=== PATIENT | female | born 1980 | race Caucasian/White ===

== ENCOUNTER 2024-01-20 10:04 | Inpatient (IN) | payer OTHER, SELFPAY ==
[2024-01-20] VITALS (8 sets, daily range): BP systolic 107–116; BP diastolic 76–88; PULSE 0–105; RESP 17–19; TEMP 36.4–36.9; O2SAT 95–98; BMI 26.2; BMI 31.0
--- NOTE | 2024-01-20 10:38 | ED_ITS ---
HPI - Nausea/Vomiting/Diarrhea 2 General: Chief complaint: Nausea/Vomiting/Diarrhea Stated complaint: D/N Time Seen by Provider: 01/20/24 10:26 Source: patient Mode of arrival: ambulatory Limitations: no limitations History of Present Illness: 43-year-old female states that she has b een having nausea vomiting diarrhea for the last 10 days. States her stools have been watery in nature she denies any fever denies any pain states she feels dehydrated from the diarrhea. She denies any recent travel denies any recent antibiotic use. Denies any worsening improving factors Associated nausea: Yes Associated symtoms: Reports nausea; Denies chest pain or headache(s) Related Data Home Medications Medication Instructions Recorded Confirmed medroxyprogesterone 150 mg/mL 1 mg IM Q84D 01/20/24 01/20/24 intramuscular suspension Allergies Allergy/AdvReac Type Severity Reaction Status Date / Time azithromycin Allergy ALGY-Rash Verified 01/20/24 10:29 Review of Systems 2 Const: Denies: fever(s), chills, body aches or change in appetite ENMT: Denies: throat pain or dental pain Card: Denies: chest pain Resp: Denies: dyspnea GI: Reports: nausea, vomiting and diarrhea; Denies: abdominal pain Musc: Denies: neck pain or back pain Skin/Breast: Denies: rash Neuro: Denies: headache(s) Physical Exam 2 Const: COMMON NORMALS: no acute distress, patient oriented x3 and healthy appearing HENMT: COMMON NORMALS: normocephalic and atraumatic HEAD & SCALP: n ormocephalic and atraumatic Neck/C-Spine: COMMON NORMALS: full ROM and supple Chest: COMMONS NORMALS: normal inspection of the chest Resp: COMMON NORMALS: normal respiratory effort, No retractions, No use of accessory muscles and clear to auscultation bilaterally AUSCULTATION: clear to auscultation bilaterally Cardio: COMMON NORMALS: regular rate, regular rhythm and No murmurs present (Cardio) RATE: regular rate RHYTHM: regular rhythm GI: COMMON NORMALS: Normal to inspection, nondistended, normoactive bowel sounds present, Soft to palpation, non-tender and no masses PALPATION: Yes Soft to palpation Extremity: COMMON NORMALS: normal to inspection and full ROM Neuro: COMMON NORMALS: patient oriented x3, moves all extremities and no focal motor deficits Psych: COMMON NORMALS: mental status grossly normal, Normal thought process present and cooperative THOUGHT PROCESS: Normal thought process present Skin: COMMON NORMALS: no rashes or lesions noted and no wounds GENERAL SKIN EXAM: no rashes or lesions noted Course 2 Vital Signs: Vital signs: Vital Signs Temperature 97.6 F 01/20/24 10:24 Pulse Rate 98 01/20/24 12:42 Respiratory Rate 18 01/20/24 10:24 Blood Pressure 116/88 01/20/24 12:42 Pulse Oximetry 96 01/20/24 12:42 Oxygen Delivery Me thod Room Air 01/20/24 10:24 MDM - Nausea/Vomiting/Diarrhea Medical Decision Making Patient presents here with vomiting diarrhea she is dehydrated with electrolyte abnormality she has hypokalemia along with hyponatremia and acute kidney injury she is nontoxic-appearing here no signs of infection I spoke to the hospitalist will admit for electrolyte replacement and fluids Medical Records I reviewed the patient's medical records. Lab Data I reviewed the patient's lab results. 01/20/24 11:52 01/20/24 11:52 Laboratory Results WBC 8.58 10^3/uL (3.29-11.43) 01/20/24 11:52 RBC 4.58 10^6/uL (3.85-5.65) 01/20/24 11:52 Hgb 18.20 g/dL (11.27-16.99) H 01/20/24 11:52 Hct 49.2 % (36-47) H 01/20/24 11:52 MCV 107.4 fl (85-98) H 01/20/24 11:52 MCH 39.7 pg (27-33) H 01/20/24 11:52 MCHC 37.0 g/dL (30-55) 01/20/24 11:52 RDW 12.9 % (12.1-15.1) 01/20/24 11:52 Plt Count 265 10^3/cmm (157-399) 01/20/24 11:52 MPV 11.3 fL (7.4-10.4) H 01/20/24 11:52 Neut % (Auto) 68.5 % 01/20/24 11:52 Lymph % (Auto) 16.4 % 01/20/24 11:52 [place] % (Auto) 10.1 % 01/20/24 11:52 Eos % (Auto) 2.9 % 01/20/24 11:52 Baso % (Auto) 1.6 % 01/20/24 11:52 Neut # (Auto) 5.87 10^3/uL (1.8-7.7) 01/20/24 11:52 Lymph # (Auto) 1.4 10^3/uL (0.8-4.8) 01/20/24 11:52 [place] # (Auto) 0.9 10^3/uL (0.2-0.9) 01/20/24 11:52 Eos # (Auto) 0.3 10^3/uL (0.0-0.8) 01/20/24 11:52 Baso # (Auto) 0.1 10^3/uL (0.0-0.1) 01/20/24 11:52 Nucleated RBC % (auto) 0 % 01/20/24 11:52 Nucleated RBCs # 0.0 /100WBC 01/20/24 11:52 Sodium 127 mmol/L (136-145) L 01/20/24 11:52 Potassium 2.7 mmol/L (3.5-5.1) L* 01/20/24 11:52 Chloride 91 mmol/L (98-107) L 01/20/24 11:52 Carbon Dioxide 16 mmol/L (22-29) L 01/20/24 11:52 Anion Gap 22.7 (5-19) H 01/20/24 11:52 BUN 44 mg/dL (6-20) H 01/20/24 11:52 Creatinine 2.1 mg/dL (0.5-0.9) H 01/20/24 11:52 GFR Calculation 25.8 mL/min (90-130) L 01/20/24 11:52 Glucose 166 mg/dL (65-115) H 01/20/24 11:52 Calculated Osmolality 279 mOsm/kg (285-295) L 01/20/24 11:52 Calcium 8.6 mg/dL (8.5-10.5) 01/20/24 11:52 Total Bilirubin 1.6 mg/dL (0.15-1.2) H 01/20/24 11:52 AST 78 U/L (0-32) H 01/20/24 11:52 ALT 65 U/L (0-33) H 01/20/24 11:52 Alkaline Phosphatase 140 U/L (35-105) H 01/20/24 11:52 Total Protein 8.2 g/dL (6.6-8.7) 01/20/24 11:52 Albumin 4.4 g/dL (3.5-5.2) 01/20/24 11:52 Globulin 3.8 g/dL (1.3-4.6) 01/20/24 11:52 Lipase 66 U/L (13-60) H 01/20/24 11:52 HCG, Qual Negative (Negative) 01/20/24 11:52 Urine Color Dark yellow (Yellow) A 01/20/24 11:04 Urine Appearance Cloudy (CLEAR) A 01/20/24 11:04 Urine pH 5.0 (5-7) 01/20/24 11:04 Ur Specific [place] 1.022 (1.005-1.030) 01/20/24 11:04 Urine Protein 2+ (Negative) A 01/20/24 11:04 Urine Glucose (UA) Negative (Normal) 01/20/24 11:04 Urine Ketones Trace (Negative) 01/20/24 11:04 Urine Blood Negative (Negative) 01/20/24 11:04 Urine Nitrate Negative (Negative) 01/20/24 11:04 Urine Bilirubin 2+ (Negative) H 01/20/24 11:04 Urine Urobilinogen 1.0 mg/dL (Negative) 01/20/24 11:04 Ur Leukocyte Esterase Trace (Negative) A 01/20/24 11:04 Urine RBC 0-2 /hpf (0-2) 01/20/24 11:04 Urine WBC 6-10 /hpf (0-5) 01/20/24 11:04 Ur Squamous Epith Cells 6-10 /hpf (0-5) 01/20/24 11:04 Amorphous Sediment Not Reportable 01/20/24 11:04 Urine Bacteria None seen /hpf (NONE) 01/20/24 11:04 Hyaline Casts 119.97 /lpf 01/20/24 11:04 Fine Granular Casts 0-4 /lpf H 01/20/24 11:04 All radiology interpretation(s) finalized by discharge Discharge Plan Discharge Patient Disposition: Admitted As Inpatient Clinical Impression: Dehydration, Vomiting, Diarrhea, Hypokalemia, Acute hyponatremia, ANATOLY (acute kidney injury) Condition: Stable Prescriptions: No Action medroxyprogesterone 150 mg/mL suspension 1 mg IM Q84D Referrals: Denise Huizar MD [Primary Care Provider] - Coding Level of Care Code ED Electrical Technology Instructor for Maile Wall
[2024-01-20] MEDS: ondansetron 2 mg/ML SDV 2 mL 4 MG IVP (10:46)
[2024-01-20] MEDS: diphenoxylate/atropine Tablet 2 TAB PO (10:50)
[2024-01-20] MEDS: sodium chloride 0.9% 1,000 ML 999 ML IV (10:51)
[2024-01-20 11:23] LABS: Bilirubin Urine 2+ (Negative); Blood Urine Negative (Negative); Glucose Urine UA Negative (Normal); Ketones Urine Trace (Negative); Leukocyte Esterase Urine Trace (Negative); Nitrate Urine Negative (Negative); Protein Urine 2+ (Negative); Specific Gravity, Urine 1.022 (1.005-1.030); Urine Appearance Cloudy (CLEAR); Urine Color Dark Yellow (Yellow)
[2024-01-20 11:28] LABS: Add Urine Microscopic? YES; Bacteria Urine None Seen /hpf; Hyaline Casts Urine 119.97 /lpf; RBC Urine 0-2 /hpf (0-2)
[2024-01-20 11:42] LABS: UA Slide Review UA Slide Review Perf
[2024-01-20 11:45] LABS: Add Urine Culture? No; Fine Granular Casts Urine 0-4 /lpf
[2024-01-20 12:12] LABS: Basophils # 0.1 10^3/uL (0.0-0.1); Basophils % 1.6 %; Eosinophils # 0.3 10^3/uL (0.0-0.8); Eosinophils % 2.9 %; Hematocrit 49.2 % (36-47); Lymphocytes # 1.4 10^3/uL (0.8-4.8); Lymphocytes % 16.4 %; Mean Corpuscular Hemoglobin 39.7 pg (27-33); Mean Corpuscular Volume 107.4 fl (85-98); Mean Platelet Volume 11.3 fL (7.4-10.4); Monocytes # 0.9 10^3/uL (0.2-0.9); Monocytes % 10.1 %; Neutrophils # 5.87 10^3/uL (1.8-7.7); Neutrophils % 68.5 %; Nucleated Red Blood Cells % 0 %; Platelet Count 265 10^3/cmm (157-399); Red Blood Count 4.58 10^6/uL (3.85-5.65); Red Cell Distribution Width 12.9 % (12.1-15.1); White Blood Count 8.58 10^3/uL (3.29-11.43)
[2024-01-20 12:30] LABS: Alanine Aminotransferase 65 U/L (0-33); Albumin Level 4.4 g/dL (3.5-5.2); Alkaline Phosphatase 140 U/L (35-105); Aspartate Amino Transferase 78 U/L (0-32); Blood Urea Nitrogen 44 mg/dL (6-20); Calcium 8.6 mg/dL (8.5-10.5); Carbon Dioxide 16 mmol/L (22-29); Chloride 91 mmol/L (98-107); Globulin 3.8 g/dL (1.3-4.6); Glomerular Filtration Rate 25.8 mL/min (90-130); Glucose 166 mg/dL (65-115); Lipase 66 U/L (13-60); Osmolality Calculated 279 mOsm/kg (285-295); Sodium 127 mmol/L (136-145); Total Bilirubin 1.6 mg/dL (0.15-1.2); Total Protein 8.2 g/dL (6.6-8.7)
[2024-01-20 12:32] LABS: Creatinine Clr Calc Pharmacy 40.9353
[2024-01-20 12:34] LABS: Anion Gap 22.7 (5-19); Potassium 2.7 mmol/L (3.5-5.1)
--- NOTE | 2024-01-20 12:37 | CT_ITS ---
WS: [id number] CT ABDOMEN AND PELVIS NONCONTRAST HISTORY: vomiting TECHNIQUE: Imaging performed through the abdomen and pelvis. Coronal and sagittal reformats are submi tted. All CT scans at [facility] use at least one of these dose optimization techniques: auto mated exposure control; mA and/or kV adjustment per patient size (includes targeted exams where dose is matched to clinical indication); or iterative reconstruction. DLP: 779.46 mGy.cm COMPARISON: None available. Lower thorax: Lung bases are clear. Visualized heart is normal. No hiatal hernia. Liver: Liver is slightly enlarged with diffuse hepatic steatosis. Gallbladder: Normal gallbladder. No pericholecystic fluid or cholelithiasis. No gallbladder wall thic [place]. Pancreas: Normal size and attenuation. Normal pancreatic duct. No pancreatitis or mass. Spleen: Normal. Adrenal glands: Normal. No mass. Right kidney: Normal size kidney. Nonobstructing 3 mm calcification upper pole. No hydronephrosis. Left kidney: Nonobstructing 3 mm calcification mid kidney. No obstruction. Aorta: Mild atherosclerosis abdominal aorta with no aneurysm. No free fluid. Mildly hyperemic central mesenteric and RIGHT lower quadrant lymph nodes. No free air. GI tract: Normally distended stomach. No small bowel obstruction. Distal small bowel loops are mildly distended with fluid. Normal appendix. Distal colon is distended with liquid feces. Abdominal wall: Negative. No hernia. Pelvis: Midline uterus is normal size. No free fluid. Osseous structures: Unremarkable. CT/CT kidney stone [id number] IMPRESSION: 1. No GI tract obstruction. 2. Small amount of increased fluid in the distal small bowel and also liquid f eces in the distal colon. Likely viral gastroenteritis. 3. Additional central mesenteric and RIGHT lower quadrant mildly hyperemic lym ph nodes. May be due to viral gastroenteritis. 4. Mild hepatomegaly with hepatic steatosis. 5. Normal appendix. 6. No renal obstruction.
[2024-01-20 12:42] LABS: HCG, Serum Qual Negative (Negative)
[2024-01-20] MEDS: potassium chloride ER 20 mEq Tablet 40 MEQ PO ×4 (12:53→21:23)
--- NOTE | 2024-01-20 13:17 | P.HP_ITS ---
Providers/Chief Complaint 2 Primary Care Provider: Denise Huizar MD Chief Complaint: D/N History of Present Illness Jamal Gaines is a 43 year old female with no segment past medical history presents to the ER with ongoing diarrhea nausea and vomiting. Patient has been having watery diarrhea without foul smell for over 10 days with nausea and vomiting over the last 4 days. She denies of having any sick contacts, family members having similar illness, recent travel, consumption of well water. She developed cramps in her muscles, weakness and dizziness so she presented to the ER today. 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 Review of Systems 2 General: Reports: 10 or more systems reviewed and unremarkable except in HPI and below Const: Denies: fever(s), chills, body aches, change in appetite, change in weight, malaise, night sweats, diaphoresis, change in sleep pattern, daytime sleepiness or snoring Eyes: Denies: change in vision, blurry vision, photophobia, eye discomfort or eye discharge ENMT: Denies: throat pain, enlarged tonsils, hoarseness, mouth pain, oral sores, dry mouth, tinnitus, nasal congestion or post nasal drip Card: Denies: chest pain, palpitations, irregular heart rhythm, edema, swelling of feet/ankles, lightheadedness, syncope, pre-syncope, dyspnea on exertion, orthopnea, leg pain with exertion or acrocyanosis Resp: Denies: dyspnea, productive cough, non-productive cough, wheezing, stridor, pain on inspiration, change in phlegm color, hemoptysis or chest congestion GI: Denies: abdominal pain, nausea, vomiting, hematemesis, coffee ground emesis, dysphagia, heartburn, diarrhea, constipation, bloating, GI cramping, change in bowel habits, pain on defecation, hematochezia or melena : Denies: flank pain, dysuria, urinary frequency, urinary urgency, urinary hesitancy, nocturia or hematuria Musc: Denies: neck pain, back pain, extremity pain, joint pain, joint swelling, joint redness, joint stiffness or limited range of motion Neuro: Denies: headache(s), numbness in extremities, weakness in extremities, sensory changes, lack of coordination, difficulty walking, frequent falls, dizziness, vertigo, confusion, Slurred speech present, difficulty communicating thoughts or seizure-like activity Psych: Denies: anxiety, depression, mood swings, panic attacks, hopelessness or irritability Endo: Denies: polyuria, polydipsia, tired all the time, cold intolerance, excessive sweating, flushing or heat intolerance Paramjit/Lymph: Denies: easy bruising or easy bleeding All/Imm: Denies: tongue swelling, facial swelling or acute wheezing Medications/Allergies Home Medications Medication Instructions Recorded Confirmed Last Taken Type medroxyprogesterone 150 mg/mL 1 mg IM Q84D 01/20/24 01/20/24 11/23/23 History intramuscular suspension Allergies Allergy/AdvReac Type Severity Reaction Status Date / Time azithromycin Allergy ALGY-Rash Verified 01/20/24 10:29 PFSH Acute 2 PFSH: Medical History (Updated 01/20/24 @ 16:36 by Pantera Cui MD) Patient denies significant medical history Surgical History (Updated 01/20/24 @ 16:36 by Pantera Cui MD) No significant past surgical history Social History (Updated 01/20/24 @ 16:36 by Pantera Cui MD) Smoking and tobacco/nicotine status: never used tobacco/nicotine Alcohol intake: never Substance/Drug Use: never Caregiver/support person: Yes Lives independently: Yes Household members: spouse Housing: House Marital status: Vitals/I&O/Wt Last Vital Signs Temp 97.6 F 01/20/24 10:24 Pulse 98 01/20/24 12:42 Resp 18 01/20/24 10:24 BP 116/88 01/20/24 12:42 Pulse Ox 96 01/20/24 12:42 O2 Del Method Room Air 01/20/24 10:24 01/19/24 01/20/24 01/20/24 22:59 06:59 14:59 Intake Total 1000 / 1000 Balance 1000 / 1000 Weight last 48 hrs Weight 83.007 kg Physical Exam 2 Narrative: General: No acute distress, AO x3 dehydrated. HEENT: PERRLA, pupils bilaterally equal and reactive Chest: Normal vesicular breath sounds, no added sounds, equal good air entry bilaterally CVS: S1-S2 regular, no murmurs, no tachycardia, no gallops, no rubs Abdomen: Soft, nontender, no organomegaly, bowel sounds present Neuro: No focal deficits, no facial deformity, AO x3, power 5/5 in all limbs Data 01/20/24 11:52 01/20/24 11:52 A&P Assessment and plan (1) Dehydration: (2) ANATOLY (acute kidney injury): (3) Acute hyponatremia: (4) Hypokalemia: (5) High anion gap metabolic acidosis: (6) Diarrhea: (7) Vomiting: Plan 43-year-old female presents with ongoing diarrhea for over 10 days but complains and vomiting over the last 4 days found to have significant dehydration and electrolyte abnormalities. Diarrhea: Acute over the last 10 days. Check stool studies, procalcitonin. If C. difficile is ruled out can start on Imodium. Check respiratory viral panel. Check serial antigen. For now we will hold off on starting antibiotics until patient have leukocytosis or high-grade fevers. IV fluids at 75 cc/h. Appreciate CT on pelvis done in ER. Hyponatremia: Most likely acute setting of diarrhea. IV fluid with normal saline as above. Monitor BMP every 8 hours. Will target improvement of 8 to 10 mEq within next 24 hours. Hypokalemia: Again most likely in setting of chronic diarrhea and vomiting. Received 40 mg in ER. Will replace 80 mEq further and start on normal saline with 20 mg of fluids as above. ANATOLY: Medical reconciliation done for nephrotoxic drugs. Monitor BMP every 8 hours. No obstructive nephropathy as per CT abdomen pelvis. Check urine lites, urine creatinine. High anion gap metabolic acidosis Mechanical soft diet Protonix for PUD prophylaxis Heparin for DVT prophylaxis Full code Attestations 2 Medical Necessity Statement*: Admission for more than 2 midnights for management of significant dehydration with acute kidney injury, hyponatremia, hypokalemia in setting of acute diarrhea nausea and vomiting. Diagnoses Dehydration E86.0 ANATOLY (acute kidney injury) N17.9 Acute hyponatremia E87.1 Hypokalemia E87.6 High anion gap metabolic acidosis E87.29 Diarrhea R19.7 Vomiting R11.10
[2024-01-20 13:28] LABS: Magnesium 2.2 mg/dL (1.7-2.3)
[2024-01-20] MEDS: sodium chlor 0.9% + KCl 20 mEq 20 MEQ/1,000 ML BAG 100 MEQ IV ×2 (13:38→23:38)
[2024-01-20 14:30] LABS: Procalcitonin 0.64 ng/mL (0-0.5); Thyroid Stimulating Hormone 2.49 uIU/mL (0.27-4.20); Vitamin B12 419 pg/mL (232-1245)
[2024-01-20 14:41] LABS: Iron 70 ug/dL (37-145); Percent Saturation 28.5 % (20-50); Total Iron Binding Capacity 245 mcg/dl; Unsaturated Iron Binding 175 ug/dL (112-347)
[2024-01-20] MEDS: pantoprazole 40 mg SDV IVP (15:06)
[2024-01-20] MEDS: heparin 5,000 unit/mL INJ 1 mL 5000 UNIT SUBCUT (15:06)
[2024-01-20 16:13] LABS: C.Diff PCR (Lab) NEGATIVE (Negative)
[2024-01-20 18:40] LABS: Blood Urea Nitrogen 40 mg/dL (6-20); Carbon Dioxide 16 mmol/L (22-29); Chloride 98 mmol/L (98-107); Glomerular Filtration Rate 35.3 mL/min (90-130); Glucose 182 mg/dL (65-115); Osmolality Calculated 286 mOsm/kg (285-295); Sodium 131 mmol/L (136-145)
[2024-01-20 18:48] LABS: Anion Gap 20.3 (5-19); Potassium 3.3 mmol/L (3.5-5.1)
[2024-01-21] VITALS: BP 109/67; PULSE 91; RESP 17; TEMP 36.6; O2SAT 98
[2024-01-21 01:38] LABS: Blood Urea Nitrogen 33 mg/dL (6-20); Calcium 8.1 mg/dL (8.5-10.5); Carbon Dioxide 16 mmol/L (22-29); Chloride 103 mmol/L (98-107); Creatinine Clr Calc Pharmacy 69.2579; Glomerular Filtration Rate 44.9 mL/min (90-130); Glucose 198 mg/dL (65-115); Osmolality Calculated 285 mOsm/kg (285-295); Sodium 131 mmol/L (136-145)
[2024-01-21] MEDS: heparin 5,000 unit/mL INJ 1 mL 5000 UNIT SUBCUT (02:18)
[2024-01-21 04:00] VITALS: BP 104/71; PULSE 88; RESP 18; TEMP 36.8; O2SAT 98
--- NOTE | 2024-01-21 04:35 | PC.NURSE ---
pt had total of 5 loose stools this shift and had 150 ml measurable urine output due to at times urine mixed with loose stools.
[2024-01-21 05:04] LABS: Basophils # 0.1 10^3/uL (0.0-0.1); Basophils % 1.7 %; Eosinophils # 0.2 10^3/uL (0.0-0.8); Hematocrit 42.3 % (36-47); Lymphocytes # 1.2 10^3/uL (0.8-4.8); Lymphocytes % 23.3 %; Mean Corpuscular HGB Conc 35.9 g/dL (30-55); Mean Corpuscular Hemoglobin 39.3 pg (27-33); Mean Corpuscular Volume 109.3 fl (85-98); Mean Platelet Volume 11.2 fL (7.4-10.4); Monocytes # 0.7 10^3/uL (0.2-0.9); Monocytes % 13.3 %; Neutrophils # 3.03 10^3/uL (1.8-7.7); Neutrophils % 57.3 %; Nucleated Red Blood Cells % 0 %; Platelet Count 204 10^3/cmm (157-399); Red Blood Count 3.87 10^6/uL (3.85-5.65); Red Cell Distribution Width 12.8 % (12.1-15.1); White Blood Count 5.28 10^3/uL (3.29-11.43)
[2024-01-21 05:30] LABS: Alanine Aminotransferase 45 U/L (0-33); Albumin Level 3.6 g/dL (3.5-5.2); Alkaline Phosphatase 122 U/L (35-105); Anion Gap 13.9 (5-19); Aspartate Amino Transferase 54 U/L (0-32); Blood Urea Nitrogen 30 mg/dL (6-20); Calcium 8.1 mg/dL (8.5-10.5); Carbon Dioxide 17 mmol/L (22-29); Chloride 105 mmol/L (98-107); Creatinine Clr Calc Pharmacy 78.0147; Globulin 2.7 g/dL (1.3-4.6); Glomerular Filtration Rate 54.5 mL/min (90-130); Glucose 153 mg/dL (65-115); Magnesium 2.1 mg/dL (1.7-2.3); Osmolality Calculated 283 mOsm/kg (285-295); Phosphorus 2.3 mg/dL (2.5-4.5); Potassium 3.9 mmol/L (3.5-5.1); Sodium 132 mmol/L (136-145); Total Bilirubin 1.2 mg/dL (0.15-1.2); Total Protein 6.3 g/dL (6.6-8.7)
[2024-01-21 05:31] VITALS: PULSE 79
[2024-01-21 05:31] LABS: Chol HDL Ratio 3.71 mg/dL (0.0-4.40); Cholesterol 104 mg/dL (0-200); HDL Cholesterol 28 mg/dL (60-100); LDL Cholesterol Calculated 56 mg/dL (50-129); Triglycerides 98 mg/dL (0-150)
[2024-01-21 05:49] LABS: Estmated Average Glucose 169; Hemoglobin A1C 7.5 % (4.0-6.0)
[2024-01-21 07:45] VITALS: BP 101/67; PULSE 92; RESP 16; TEMP 36.8; O2SAT 97
[2024-01-21] MEDS: sodium chlor 0.9% + KCl 20 mEq 20 MEQ/1,000 ML BAG 100 MEQ IV (09:17)
[2024-01-21 09:21] LABS: Anion Gap 13.6 (5-19); Blood Urea Nitrogen 26 mg/dL (6-20); Calcium 7.9 mg/dL (8.5-10.5); Carbon Dioxide 17 mmol/L (22-29); Chloride 104 mmol/L (98-107); Creatinine Clr Calc Pharmacy 95.3512; Glomerular Filtration Rate 68.7 mL/min (90-130); Glucose 224 mg/dL (65-115); Osmolality Calculated 284 mOsm/kg (285-295); Potassium 3.6 mmol/L (3.5-5.1); Sodium 131 mmol/L (136-145)
--- NOTE | 2024-01-21 10:28 | PM.DCS ---
Discharge Providers Date of Admission: 01/20/24 13:34 Date of Discharge: January 21, 2024 Attending Provider at Admission: Pantera Cui MD Attending Provider at Discharge: Pantera Cui MD Primary Care Provider: Denise Huizar MD Diagnoses at Discharge Discharge Diagnosis (1) Dehydration: Status: Acute (2) ANATOLY (acute kidney injury): Status: Acute (3) Acute hyponatremia: Status: Acute (4) Hypokalemia: Status: Acute (5) High anion gap metabolic acidosis: Status: Acute (6) Diarrhea: Status: Acute (7) Vomiting: Status: Acute Reason for Visit Reason for Visit: D/N Hospital Course Hospital Course Jamal Gaines is a 43 year old female with no segment past medical history presents to the ER with ongoing diarrhea nausea and vomiting. Patient has been having watery diarrhea without foul smell for over 10 days with nausea and vomiting over the last 4 days. She denies of having any sick contacts, family members having similar illness, recent travel, consumption of well water. She developed cramps in her muscles, weakness and dizziness so she presented to the ER today. In the ER she was found to have significant electrolyte abnormalities with hypokalemia, hyponatremia with metabolic acidosis and acute kidney injury. Patient was admitted to the hospital started on IV hydration with replacement of multiple electrolytes. Stool studies were sent out and has been negative for C. difficile while other studies are awaited. Patient was able to tolerate oral diet and hydration during hospitalization. She responded well to the treatment and improved drastically. Her ANATOLY has resolved. She has been discharged hemodynamically stable condition and advised to consume up to 50 to 60 ounces of fluid daily with at least one third of it being electrolyte rich fluid like Gatorade. She has been discharged with loperamide as needed along with oral ciprofloxacin and Flagyl for next 5 days. Physical Exam Narrative: General: No acute distress, AO x3 HEENT: PERRLA, pupils bilaterally equal and reactive Chest: Normal vesicular breath sounds, no added sounds, equal good air entry bilaterally CVS: S1-S2 regular, no murmurs, no tachycardia, no gallops, no rubs Abdomen: Soft, nontender, no organomegaly, bowel sounds present Neuro: No focal deficits, no facial deformity, AO x3, power 5/5 in all limbs Discharge Data Studies Completed and Pending Completed Studies During Hospitalization Category Date Time Status CT abdomen renal stone [CT kidney stone 78089] Stat Cat Scan 01/20/24 12:37 Completed Pending at discharge Category Date Time Status Bacterial Antigen Stat Lab 01/20/24 13:16 Ordered Basic Metabolic Panel Q8H Lab 01/21/24 16:00 Ordered Basic Metabolic Panel Q8H Lab 01/22/24 00:00 Ordered OVA and Parasites, Conc and PE Routine Lab 01/20/24 13:48 Received Respiratory Panel 2 Routine Lab 01/20/24 13:56 Ordered Salmonella / Shigella / Campy Routine Lab 01/20/24 13:48 Received Urine Creatinine Stat Lab 01/20/24 13:16 Ordered Urine Lytes [Urine Random Lytes] Stat Lab 01/20/24 13:16 Ordered Radiology Impressions Abdomen/Pelvis CT 01/20/24 12:37 IMPRESSION: 1. No GI tract obstruction. 2. Small amount of increased fluid in the distal small bowel and also liquid feces in the distal colon. Likely viral gastroenteritis. 3. Additional central mesenteric and RIGHT lower quadrant mildly hyperemic lymph nodes. May be due to viral gastroenteritis. 4. Mild hepatomegaly with hepatic steatosis. 5. Normal appendix. 6. No renal obstruction. Microbiology 01/20/24 13:48 Stool Stool Lactoferrin - Final 01/20/24 13:48 Stool Occult Blood (FIT) - Final Laboratory Results WBC 5.28 10^3/uL (3.29-11.43) 01/21/24 04:41 RBC 3.87 10^6/uL (3.85-5.65) 01/21/24 04:41 Hgb 15.20 g/dL (11.27-16.99) 01/21/24 04:41 Hct 42.3 % (36-47) 01/21/24 04:41 MCV 109.3 fl (85-98) H 01/21/24 04:41 MCH 39.3 pg (27-33) H 01/21/24 04:41 MCHC 35.9 g/dL (30-55) 01/21/24 04:41 RDW 12.8 % (12.1-15.1) 01/21/24 04:41 Plt Count 204 10^3/cmm (157-399) 01/21/24 04:41 MPV 11.2 fL (7.4-10.4) H 01/21/24 04:41 Neut % (Auto) 57.3 % 01/21/24 04:41 Lymph % (Auto) 23.3 % 01/21/24 04:41 [place] % (Auto) 13.3 % 01/21/24 04:41 Eos % (Auto) 4.0 % 01/21/24 04:41 Baso % (Auto) 1.7 % 01/21/24 04:41 Neut # (Auto) 3.03 10^3/uL (1.8-7.7) 01/21/24 04:41 Lymph # (Auto) 1.2 10^3/uL (0.8-4.8) 01/21/24 04:41 [place] # (Auto) 0.7 10^3/uL (0.2-0.9) 01/21/24 04:41 Eos # (Auto) 0.2 10^3/uL (0.0-0.8) 01/21/24 04:41 Baso # (Auto) 0.1 10^3/uL (0.0-0.1) 01/21/24 04:41 Nucleated RBC % (auto) 0 % 01/21/24 04:41 Nucleated RBCs # 0.0 /100WBC 01/21/24 04:41 Sodium 131 mmol/L (136-145) L 01/21/24 08:43 Potassium 3.6 mmol/L (3.5-5.1) 01/21/24 08:43 Chloride 104 mmol/L (98-107) 01/21/24 08:43 Carbon Dioxide 17 mmol/L (22-29) L 01/21/24 08:43 Anion Gap 13.6 (5-19) 01/21/24 08:43 BUN 26 mg/dL (6-20) H 01/21/24 08:43 Creatinine 0.9 mg/dL (0.5-0.9) 01/21/24 08:43 GFR Calculation 68.7 mL/min (90-130) L 01/21/24 08:43 Glucose 224 mg/dL (65-115) H 01/21/24 08:43 Estimat Average Glucose 169 01/21/24 04:41 Hemoglobin A1c 7.5 % (4.0-6.0) H 01/21/24 04:41 Calculated Osmolality 284 mOsm/kg (285-295) L 01/21/24 08:43 Calcium 7.9 mg/dL (8.5-10.5) L 01/21/24 08:43 Phosphorus 2.3 mg/dL (2.5-4.5) L 01/21/24 04:41 Magnesium 2.1 mg/dL (1.7-2.3) 01/21/24 04:41 Iron 70 ug/dL (37-145) 01/20/24 11:52 TIBC 245 mcg/dl 01/20/24 11:52 % Saturation 28.5 % (20-50) 01/20/24 11:52 Unsat Iron Binding 175 ug/dL (112-347) 01/20/24 11:52 Total Bilirubin 1.2 mg/dL (0.15-1.2) 01/21/24 04:41 AST 54 U/L (0-32) H 01/21/24 04:41 ALT 45 U/L (0-33) H 01/21/24 04:41 Alkaline Phosphatase 122 U/L (35-105) H 01/21/24 04:41 Total Protein 6.3 g/dL (6.6-8.7) L D 01/21/24 04:41 Albumin 3.6 g/dL (3.5-5.2) 01/21/24 04:41 Globulin 2.7 g/dL (1.3-4.6) 01/21/24 04:41 Triglycerides 98 mg/dL (0-150) 01/21/24 04:41 Cholesterol 104 mg/dL (0-200) 01/21/24 04:41 LDL Cholesterol, Calc 56 mg/dL (50-129) 01/21/24 04:41 HDL Cholesterol 28 mg/dL (60-100) L 01/21/24 04:41 LDL/HDL Ratio 2.00 RATIO (0.00-3.22) 01/21/24 04:41 Cholesterol/HDL Ratio 3.71 mg/dL (0.0-4.40) 01/21/24 04:41 Lipase 66 U/L (13-60) H 01/20/24 11:52 Vitamin B12 419 pg/mL (232-1245) 01/20/24 11:52 Folate 2.0 ng/mL (4.8-37.3) L 01/21/24 04:41 Procalcitonin 0.40 ng/mL (0-0.5) 01/21/24 04:41 TSH 2.49 uIU/mL (0.27-4.20) 01/20/24 11:52 HCG, Qual Negative (Negative) 01/20/24 11:52 Urine Color Dark yellow (Yellow) A 01/20/24 11:04 Urine Appearance Cloudy (CLEAR) A 01/20/24 11:04 Urine pH 5.0 (5-7) 01/20/24 11:04 Ur Specific [place] 1.022 (1.005-1.030) 01/20/24 11:04 Urine Protein 2+ (Negative) A 01/20/24 11:04 Urine Glucose (UA) Negative (Normal) 01/20/24 11:04 Urine Ketones Trace (Negative) 01/20/24 11:04 Urine Blood Negative (Negative) 01/20/24 11:04 Urine Nitrate Negative (Negative) 01/20/24 11:04 Urine Bilirubin 2+ (Negative) H 01/20/24 11:04 Urine Urobilinogen 1.0 mg/dL (Negative) 01/20/24 11:04 Ur Leukocyte Esterase Trace (Negative) A 01/20/24 11:04 Urine RBC 0-2 /hpf (0-2) 01/20/24 11:04 Urine WBC 6-10 /hpf (0-5) 01/20/24 11:04 Ur Squamous Epith Cells 6-10 /hpf (0-5) 01/20/24 11:04 Amorphous Sediment Not Reportable 01/20/24 11:04 Urine Bacteria None seen /hpf (NONE) 01/20/24 11:04 Hyaline Casts 119.97 /lpf 01/20/24 11:04 Fine Granular Casts 0-4 /lpf H 01/20/24 11:04 C. difficile (PCR) Negative (Negative) 01/20/24 13:48 Vitals Last Vital Signs Temp 98.3 F 01/21/24 07:45 Pulse 92 01/21/24 07:45 Resp 16 01/21/24 07:45 BP 101/67 01/21/24 07:45 Pulse Ox 97 01/21/24 07:45 O2 Del Method Room Air 01/21/24 07:45 Discharge Plan Discharge Patient Disposition: Home Condition: Stable Prescriptions: New loperamide 2 mg Capsule 2 mg PO QID PRN (Reason: Diarrhea) Qty: 14 0RF ciprofloxacin HCl 500 mg tablet 500 mg PO Q12H Qty: 10 0RF metronidazole [Flagyl] 375 mg capsule 375 mg PO BID Qty: 10 0RF Continued medroxyprogesterone 150 mg/mL suspension 1 mg IM Q84D Discharge Orders: Discharge Order (Routine); Ordered 01/21/24 Ordered By: Pantera Cui Referrals: Denise Huizar MD [Primary Care Provider] - 01/28/24 10:30 am (Dr Huizar is out of office so Follow up appointment will be with Dr Martinez) Discharge Diet: Regular Discharge Activity: Resume usual activity and Increase activity as tolerated Patient Instructions: Ciprofloxacin (By mouth), Loperamide (By mouth), Metronidazole (By mouth), Acute Kidney Injury (DC), Opioid Safety Activity Restrictions/Additional Instructions: Please make sure you maintain oral hydration with at least 50 to 60 ounces of fluid daily. At least one third of the fluid should be electrolyte rich. You can consume something like a Powerade or Gatorade. If you are not able to maintain your oral hydration please present back to the ER. You will be on Cipro and Flagyl which are the antibiotics for next 5 days. Follow-up with your primary care provider within next 1 week for repeat BMP Discharge Attestations Time Spent in Discharge Care*: greater than 30 min Specific Discharge Activities: educating patient, educating and/or supporting family/caregiver, discussing with pcp/other providers, discussing with employment evaluator/case manager/social workers/dc planners, documenting/other paperwork and evaluating patient/reviewing data Status at Discharge: Cognitive status at discharge: cognitively intact, Behavioral status at discharge: cooperative, Functional status at discharge: independent ambulation, Overall status at discharge: patient is back to baseline Quality Metrics Clinical Quality Measures [ No reported AMI, CVA or VTE this stay] Coding Level of Care Code 89151 Total time (in minutes) for Discharge: 60 Diagnoses Dehydration E86.0 ANATOLY (acute kidney injury) N17.9 Acute hyponatremia E87.1 Hypokalemia E87.6 High anion gap metabolic acidosis E87.29 Diarrhea R19.7 Vomiting R11.10
[2024-01-21] MEDS: loperamide 2 mg Capsule PO (10:49)
[2024-01-21 11:35] VITALS: BP 101/67; PULSE 85; RESP 17; TEMP 36.8; O2SAT 97
== END 2024-01-21 11:25 | disposition home or self-care (01) | DRG 683 ==
LOC: ER 13:18 → MEDSURG 13:35
PROVIDERS: Admitting Provider Student in an Organized Health Care Education/Training Program; Emergency Provider Emergency Medicine; PCP Family Medicine; Visit Provider Student in an Organized Health Care Education/Training Program
DX: N17.9 Acute kidney failure, unspecified (principal); E87.1 Hypo-osmolality and hyponatremia; E87.20 Acidosis, unspecified; E87.6 Hypokalemia; E86.0 Dehydration; R19.7 Diarrhea, unspecified; R11.2 Nausea with vomiting, unspecified
CPT/HCPCS: 36415; 74176; 80048; 80053; 80061; 81001; 82274; 82607; 82746; 83036; 83540; 83550; 83630; 83690; 83735; 84100; 84145; 84443; 84703; 85025; 87045; 87177; 87209; 87427; 87449; 87493; 94664; 96372; 96374; 99285; J1644; J2405; J2470; J3480; J7030

== ENCOUNTER 2024-09-27 01:03 | Emergency (ER) | payer OTHER, SELFPAY ==
[2024-09-27 01:09] VITALS: BP 136/90; PULSE 87; RESP 14; TEMP 36.7; O2SAT 96
--- OUTSIDE RECORDS SUMMARY | 2024-09-27 01:18 | XMS_ITS | Data Portability ---
Author Organization [facility] Address [address] [address] Care Team Providers Care Primary Mill Roller Name Role Phone SALLIESANDYDENISE Primary Care Provider Unavailabl e Assessment No assessment recorded. Plan of Treatment Reminders Order Date Submit Date Provider Last Modified By Organization Details Last Modified Time Details Appointments None recorded. Lab None recorded. Referral None recorded. Procedures None recorded. Surgeries None recorded. Imaging MAMMO, screening, digital, bilateral 2024 025 [email or web address] [id number] [facility] Imaging Orders, [address] [place], [address], 5 11:51:10 Medication Orders Depo-Keeper Head a 150 mg/mL intramuscul ar syringe 2024 025 [email or web address] [id number], [address], [address], 5 15:13:53 Depo-Keeper Head a 150 mg/mL intramuscul ar syringe 2024 025 [email or web address] [id number], [address], [address], 5 14:03:35 ondansetron 4 mg disintegrat ing tablet 2023 024 [facility], [address], [place], [address], 4 11:33:41 Patient TargetsNo targets recorded. Patient InstructionsNo instructions recorded. Reason for Referral None Reported. Procedures Surgical History Date Name Laterality Status Provider Name and Address Organization Details Recorded Time 07/31/2021 Date of Last Pap Smear completed FRANCISCO FRANCISCO [facility] 05/24/2024 15:18:48 Imaging Results None recorded. Procedure Notes None recorded. Medical Equipment None Reported. Allergies Allergen ID Allergen Name Allergen Category Reaction Reaction Severity Criticality Documentation Date Start Date Code Code System Note Provider Name and Address Organization Details Recorded Time 89080 erythromy gustavo medicatio n Not available Not available Not available 10/04/2022 4053 RxNorm Comme nt: Recor ded 10/21 8:42A M by Lee Ann camejo RN, Histo rical Summa ry; Promo leeann; Anamika madison ce: *; ; Not Available [facility] 3 02:25:25 Medications Name Sig Start Date Stop Date Status Note LastModified by Organization Details LastModified Time prednison e 10 mg tablet TAKE 3 TABLETS BY MOUTH TWICE DAILY FOR 5 DAYS 01/11 completed Not Available Not Available Not Available loperamid e 2 mg capsule TAKE 1 CAPSULE BY MOUTH 4 TIMES DAILY NEEDED FOR DIARRHEA 01/27 completed Not Available Not Available Not Available permethri n 5 % topical cream APPLY AND MASSAGE IN CREAM FROM HEAD TO TOE LEAVE ON FOR 8-14 HOURS THEN SHOWER 01/11 completed Not Available Not Available Not Available ciproflox acin 500 mg tablet TAKE 1 TABLET BY MOUTH EVERY 12 HOURS 01/27 completed Not Available Not Available Not Available Depo-Prov era 150 mg/mL intramusc ular suspensio n Inject 1 mL every 3 months by intramus cular route. 05/24 completed Not Available Not Available Not Available cephalexi n 500 mg capsule TAKE 1 CAPSULE BY MOUTH THREE TIMES DAILY FOR 5 DAYS 01/11 completed Not Available Not Available Not Available triamcino lone acetonide 0.1 % topical ointment APPLY OINTMENT TOPICALL Y TO AFFECTED AREA THREE TIMES DAILY UNTIL HEALED 01/11 completed Not Available Not Available Not Available ondansetr on 4 mg disintegr ating tablet DISSOLVE 1 TABLET IN MOUTH THREE TIMES DAILY NEEDED FOR NAUSEA AND VOMITING 01/27 completed Not Available Not Available Not Available metronida zole 375 mg capsule TAKE 1 CAPSULE BY MOUTH TWICE DAILY 01/27 completed Not Available Not Available Not Available amoxicill in 875 mg-potass ium clavulana te 125 mg tablet TAKE 1 TABLET BY MOUTH TWICE DAILY FOR 10 DAYS 01/11 completed Not Available Not Available Not Available Depo-Prov era 150 mg/mL intramusc ular syringe Inject 1 mL every 3 months by intramus cular route. 2024 active Depo next due: Novembe r 2-16 Not Available Not Available Not Available Vitals Date Recorded Body height Body mass index (BMI) Body weight Body temperature Oxygen saturation Oxygen saturation in Arterial blood by Pulse oximetry Heart rate Systolic And Diastolic Provider Name and Address Organization Details Last Updated DateTime 5 175.26 cm 28.4 kg/m2 34115.7 4 g 97.8 [degF] 97 % 97 % 87 /min 118/70 mm[Hg] FRANCISCO FRANCISCO [facility] 5 15:17:45 Date Recorded Body height Body mass index (BMI) Body weight Body temperature Oxygen saturation Oxygen saturation in Arterial blood by Pulse oximetry Heart rate Systolic And Diastolic Provider Name and Address Organization Details Last Updated DateTime 4 175.26 cm 29.3 kg/m2 00312.9 9 g 98.2 [degF] 97 % 97 % 90 /min 146/72 mm[Hg] Ashwini Krueger [facility] 4 10:33:40 Date Recorded Body height Body mass index (BMI) Body weight Body temperature Oxygen saturation Oxygen saturation in Arterial blood by Pulse oximetry Heart rate Systolic And Diastolic Provider Name and Address Organization Details Last Updated DateTime 4 175.26 cm 29.7 kg/m2 97606.0 7 g 97.7 [degF] 96 % 96 % 104 /min 120/80 mm[Hg] [place] MCDANIEL [facility] 11:32:46 Social History Question Answer Notes LastModified by [employer] Details LastModified Time Tobacco Smoking Status Current Every Day Smoker [place] MCDANIEL [facility] 01/28/2024 11:33:54 How Much Tobacco Do You Smoke? 1 PPD [email or web address] Information not available 05/24/2024 Sex: Unknown Functional Status Question Answer Note LastModified by Organizat [employer] Writer Details LastModified Time What is your level of alcohol consumption? Occasional [email or web address] Information not available 05/24/2024 Mental Status None recorded. Family History Relationship Description Onset Age of this Age Resolved Age Notes LastModified by Organization Details LastModified Time Father No current problems or disability [email or web address] Not available 11:33:47 Mother No current problems or disability [email or web address] Not available 11:33:47 Medical History Condition Response Coronary Artery Disease N Other N Gout N Kidney Stones N Blood Diseases N Hyperthyroidism N Breast Cancer N Blood Transfusion N Depression N Hypothyroidism N Lung Disease N COPD N Defects or Inherited Disease N Developmental or Behavioral Disorders N Breast Problem N Difficulty Swallowing N Anesthesia Complications N Meniere's disease N Anxiety Disorder N Muscle, Joint, or Bone Problems N Vision or Eye Problems N Arthritis N Polyps N Infertility N Cancer N Varicosities N Stroke N Endometriosis N Bladder or Kidney Problems N High Cholesterol N Liver Disease N Fibromyalgia N Headaches N Kidney Disease N Allergies/Hayfever N Heart Problems N Ear or Hearing Problems N Hospitalizations N Thyroid Problems N GI Problems N ADD/ADHD N Skin Problems N Eating Disorder N Anemia N Constipation N Mental Illness N Ovarian Cancer N Diabetes N Bedwetting N Seizures/Epilepsy N Tuberculosis N Eczema N Diverticulitis N Abuse/Domestic Violence N Asthma N Reflux/GERD N Hepatitis N Heart Disease N Pulmonary Embolism N Pre-Eclampsia N Hypertension N Chronic Ear Infections N Osteoporosis N Chicken Pox N Autism Spectrum Disorder (ASD) N Thrombophilias N Gynecological History Statement/Question Response Abnormal Pap N Date of Last Pap Smear 07/31/2021 Current Control Method Depo-Keeper Head a Obstetrics History GPAL:G 3 P 2 0 1 2 Type Value Full Term 2 Induced 1 Living 2 Total 3 Immunizations Vaccine Type Date Status Note Provider Abhinav galvez and Address Organization Details Recorded Time Influenza, split virus, trivalent, preservative 0 completed Not Available [facility] 10/04/2022 02:32:31 Past Encounters Encounter ID Performer Location Encounter Start Date Encounter Closed Date Diagnosis/Indication Diagnosis SNOMED-CT Code Diagnosis ICD10 Code Diagnosis Note [id number] Denise Huizar MD [facility] ([facility]) [address] [place] [phone] 07/03/2022 13:56:59 07/03/2022 14:37:42 Uses depot contraception 855952023 Z30.42 [id number] KRYSTEN MARTINEZ NP [facility] ([facility]) [address] [place], [place] [phone] 09/29/2022 10:57:45 10/28/2022 08:40:26 Uses depot contraception 487819203 Z30.8 [id number] Denise Huizar MD [facility]) [address] [place], [place] [phone] 12/29/2022 09:27:10 12/29/2022 16:53:03 [id number] BEVERLY JARRETT [facility] ([facility]) [address] [place], [place] [phone] 03/23/2023 14:12:51 03/23/2023 16:25:08 Injection given 105578752 Z98.890 Depo shot given. Patient brought Depo with her. [id number] Denise Huizar MD [facility] ([facility]) [address] [place] [phone] 06/17/2023 10:26:47 06/17/2023 14:24:56 [id number] Denise Huizar MD [facility] ([facility]) [address] [place] [id number] 09/03/2023 13:37:18 09/03/2023 15:12:49 Contraception care management 398022389 Z30.9 [id number] Denise Huizar MD [facility]) [address] [place] [phone] 12/01/2023 12:11:26 12/01/2023 12:36:59 [id number] JOSE ELIAS HERMAN [facility] ([facility]) [address] [place] [phone] 01/12/2024 10:21:06 01/12/2024 10:58:52 Acute gastroenteritis 94634488 K52.9 Pt's pain is intermitta nt in the RUQ. Discussed possible gallbladde r cause but no pain currently. If the pain becomes more persistant /worse then f/uDiscuss ed BRATS diet, small frequent sips of fluid. Rest.VSS. No signs of acute abd on exam today.If you develop fever, no urine output over 24 hours, bloody stools/marva sis, abd pain, or concerns arise return for re-eval. [id number] Donaldo Martinez MD [facility] ([facility]) [address] [place] [phone] 01/28/2024 11:20:45 01/28/2024 13:30:50 Hospital inpatient stay within past 30 days [id number] 106 Z76.89 Acute gastroenteritis 69 404770 K52.9 signs all point to a horrible viral enteritis. however, she is advised if sx like this occur again f/u to be assessed for inflammato ry bowel disease. [id number] Denise Huizar MD [facility] ([facility]) [address] [place] [phone] 5 02/29/2024 12:27:48 02/29/2024 12:53:22 [id number] Denise Huizar MD [facility] ([facility]) [address] [place] [id number] 5 05/24/2024 15:08:45 06/05/2024 18:45:12 Contraception care management 231282363 Z30.9 Screening mammography 24 623790 Z12.31 Annual mammograph y after age 40 was recommende d to the patient. General ex amination of patient 657139697 Z00.811 [id number] Donaldo Martinez MD [facility] ([facility]) [address] [place] [phone] 08/23/2024 14:11:29 08/24/2024 17:35:49 Contraception care management 340385375 Z30.9 Health Concerns Section Related Observation LastModified by Organization Detai ls LastModified Time None Recorded Concern Status LastModified by Organization Details LastModified Time None Recorded Advance Directives Directive None Recorded Payers Insurance Date Sequence Insurance Name Policy Number Policy Salazar Covered Member ID Salazar Member ID Guarantor Name 08/23/2024 1 ARAVIND [id number] Jamal Gaines [id number] Jamal Gaines 01/12/2024 1 *SELF PAY* Jairo Gaines Notes Date Note Type Note Provider Name and Address Organization Details Recorded Time 01/12/2024 text/html [facility] right upper abdominal pain since thursday with nausea and vomiting, diarrhea. Has been keeping water down. Tried drinking chicken broth last night but could not keep it down. No fever, bloody stools. CLINTON LAWRENCE, [address], [phone], [facility], Rachel 01/13/2024 07:24:49 01/28/2024 text/html she presented wi ruq pain and loose stools that started around 01/09. the pain was cramping. she had nausea when trying to eat. the cramping pain resolved essentially by the and had moved a bit lower in the right mid quadrant. she was not eating well and was having more severe diarrhea. she was seen in the er was dehydrated and kept overnight. she had a CT. she has been feeling great this week. Thursday she started having solid BM's. so, she stopped immodium. she did not take the antibiotics prescribed. she has progressively improved all week. no pain no loose stools. appetite is back. Hospital CourseHospital CourseJamal Gaines is a 43 year old female with no segment past medical history presents to the ER with ongoing diarrhea nausea and vomiting. Patient has been having watery diarrhea without foul smell for over 10 days with nausea and vomiting over the last 4 days. She denies of having any sick contacts, family members having similar illness, recent travel, consumption of well water. She developed cramps in her muscles, weakness and dizziness so she presented to the ER today. In the ER she was found to have significant electrolyte abnormalities with hypokalemia, hyponatremia with metabolic acidosis and acute kidney injury.Patient was admitted to the hospital started on IV hydration with replacement of multiple electrolytes. Stool studies were sent out and has been negative for C. difficile while other studies are awaited. Patient was able to tolerate oral diet and hydration during hospitalization. She responded well to the treatment and improved drastically. Her ANATOLY has resolved. She has been discharged hemodynamically stable condition and advised to consume up to 50 to 60 ounces of fluid daily with at least one third of it being electrolyte rich fluid like Gatorade. She has been discharged with loperamide as needed along with oral ciprofloxacin and Flagyl for next 5 days. 1. No GI tract obstruction.2. Small amount of increased fluid in the distal small bowel and also liquid feces in the distal colon. Likely viral gastroenteritis.3. Additional central mesenteric and RIGHT lower quadrant mildly hyperemic lymph nodes. May be due to viral gastroenteritis.4. Mild hepatomegaly with hepatic steatosis.5. Normal appendix.6. No renal obstruction. Donaldo Martinez MD [address] [place] [address], [phone], [facility] 01/28/2024 12:07:23 05/24/2024 text/html Annual WellnessReported bypatient.Diet and Nutrition:healthy diet Fracture Risk:no sudden unexplained fractures Physical Activity:good physical condition Additional Lifestyle Factors:tobacco use Hearing:no loss of hearing Vision:no vision problems Patient is doing well. No problems or concerns. Denise Huizar MD [address] [place] [address], [phone], [facility] 06/05/2024 12:28:22 OBGyn Episode No OBEpisode recorded.
--- NOTE | 2024-09-27 01:40 | PC.NURSE ---
flushed left ear with approx 60ml of NS. was able to flush a winged insect out of patient ear. patient tolerated well.
--- NOTE | 2024-09-27 01:44 | ED_ITS ---
HPI - Ear Problem General: Chief complaint: Ear Stated complaint: Bug in Lt ear Time Seen by Provider: 09/27/24 01:15 History of Present Illness: 43-year-old female who got a bug in her left ear earlier in the evening. She believes it is still alive but she hears it fluttering. It is somewhat painful. She can still hear out of the ear. No bleeding. Related Data Home Medications ?Medication ?Instructions ?Recorded ?Confirmed medroxyprogesterone 150 mg/mL 1 mg IM Q84D 01/20/24 intramuscular suspension Previous Rx's ?Medication ?Instructions ?Recorded ciprofloxacin HCl 500 mg tablet 500 mg PO Q12H #10 tab s 01/21/24 loperamide 2 mg capsule 2 mg PO QID PRN Diarrhea #14 caps 01/21/24 metronidazole 375 mg capsule 375 mg PO BID #10 caps (Flagyl) Allergies Allergy/AdvReac Type Severity Reaction Status Date / Time azithromycin Allergy ALGY-Rash Verified 09/27/24 01:13 [facility] ED PFSH: Medical History (Updated 09/27/24 @ 01:47 by Richie Cárdenas DO) Patient denies significant medical history Surgical History (Updated 01/20/24 @ 16:36 by Pantera Cui MD) No significant past surgical history Social History (Updated 01/20/24 @ 16:36 by Pantera Cui MD) Smoking and tobacco/nicotine status: never used tobacco/nicotine Alcohol intake: never Substance/Drug Use: never Caregiver/support person: Yes Lives independently: Yes Household members: spouse Housing: House Marital status: Physical Exam HENMT: COMMON NORMALS: normocephalic, atraumatic and TM's normal bilaterally HEAD & SCALP: normocephalic and atraumatic FACE & SINUS: normal facial exam EXTERNAL AUDITORY CANAL: Abnormal EAC present EAC laterality: left Details: erythema (Mild) and foreign body (Living bug) TYMPANIC MEMBRANE: TM's normal bilaterally Eye: COMMON NORMALS: Equal, round and reactive pupils present and EOMs intact bilaterally PUPIL: Yes Equal, round and reactive pupils present Chest: CHEST: Yes Symmetrical chest wall rise Resp: COMMON NORMALS: normal respiratory effort Cardio: COMMON NORMALS: regular rate and regular rhythm RATE: regular rate RHYTHM: regular rhythm Neuro: RAFIA COMA SCALE: document GCS findings Rafia coma scale eye opening: Spontaneous Rafia coma scale verbal response: Orientated [place] coma scale motor response: Obey commands [place] coma scale total score: 15 Procedures FB Removal Ear Location: ear canal (L) Foreign Body Suspected: insect TM intact pre-procedure: yes If Insect Suspected: ear canal instilled with Lidocaine Foreign Body Removed: yes Foreign Body Removal Technique: irrigation Tympanic Membrane Intact Post Procedure: Yes Patient Tolerated Procedure: well and no complications Complications: none Course Vital Signs: Vital signs: Vital Signs Temperature 98.1 F 09/27/24 01:09 Pulse Rate 87 09/27/24 01:09 Respiratory Rate 14 09/27/24 01:09 Blood Pressure 136/90 09/27/24 01:09 Pulse Oximetry 96 09/27/24 01:09 MDM - Ear Medical Decision Making Bug removed intact. No complications. She tolerated well. She will be discharged. No radiology studies performed this visit Discharge Plan Discharge Patient Disposition: Home Clinical Impression: Foreign body of ear, left Condition: Stable Prescriptions: No Action medroxyprogesterone 150 mg/mL suspension 1 mg IM Q84D loperamide 2 mg Capsule 2 mg PO QID PRN (Reason: Diarrhea) Qty: 14 0RF ciprofloxacin HCl 500 mg tablet 500 mg PO Q12H Qty: 10 0RF metronidazole [Flagyl] 375 mg capsule 375 mg PO BID Qty: 10 0RF Discharge Orders: Discharge ED (Routine); Ordered 09/27/24 Ordered By: Richie Cárdenas Referrals: Denise Huizar MD [Primary Care Provider, [facility]] - 4-7 days Patient Instructions: Ear Foreign Body (ED), Opioid Safety, Pain Management, Patient Portal & Jo Ann Instructions Activity Restrictions/Additional Instructions: Return for any problems Print Language: Cambodian Coding Level of Care Code ED Textile Supervisor for Maile Wall
[2024-09-27 04:48] VITALS: BP 130/86; PULSE 78; RESP 16; O2SAT 98
== END 2024-09-27 02:00 | disposition home or self-care (01) ==
PROVIDERS: Emergency Provider Emergency Medicine; PCP Family Medicine
DX: T16.2XXA Foreign body in left ear, initial encounter (principal); W44.F4XA Insect entering into or through a natural orifice, initial encounter
CPT/HCPCS: 99282